=== PATIENT | female | born 1945 | race Caucasian/White ===

== ENCOUNTER → 2019-10-27 08:24 | Outpatient (CLI) | payer MEDICARE, SELFPAY ==
--- NOTE | ~2019-10-27 | MM_ITS ---
EXAMINATION: MM diagnostic [place] w [place] HISTORY: Six-month follow-up for probably benign left breast calcifications TECHNIQUE: Craniocaudal, mediolateral, and mediolateral oblique 3-D tomosynthesis images of the left breast were performed and synthetic 2-D images were generated. Magnification views are also obtained. CAD analysis was submitted and interpreted. COMPARISON: 04/24/2019, 04/04/2019, 02/25/2018, 02/15/2017 BREAST PARENCHYMAL COMPOSITION: The breasts are heterogeneously dense, which may obscure small masses . FINDINGS: Again seen are punctate segmental calcifications in the middle and posterior third of the u pper outer quadrant of the breast which are stable. These appear to be round in morphology but again are somewhat obscured by fibroglandular content. There has been no suspicious interval change. No mas s or architectural distortion is identified. IMPRESSION: 1. Probably benign left breast calcifications. 2. Recommend 6 month follow-up left diagnostic mammogram. BI-RADS category 3, probably benign findings. Reviewed, dictated and finalized at location A.
== END ==
PROVIDERS: PCP Internal Medicine; Visit Provider Obstetrics & Gynecology
DX: R92.8 Other abnormal and inconclusive findings on diagnostic imaging of breast (principal)
CPT/HCPCS: 77061; 77065; G0279

== ENCOUNTER 2020-04-21 09:31 | Outpatient (CLI) | payer MEDICARE, SELFPAY ==
[2020-04-21 10:13] LABS: Basophils Absolute Auto 0.1 K/mm3 (0.0-0.1); Basophils Percent Auto 0.9 % (0.2-1.2); Eosinophils Absolute Auto 1.3 K/mm3 (0-0.3); Eosinophils Percent Auto 15.9 % (0-4.4); Hematocrit 42.6 % (37.0-47.0); Hemoglobin 13.9 g/dL (12.0-15.0); Immature Granulocyte Absolute 0.03 K/mm3 (0.00-0.031); Immature Granulocyte Percent A 0.4 % (0-0.5); Lymphocytes Absolute Auto 2.13 K/mm3 (0.9-3.2); Lymphocytes Percent Auto 26.4 % (18.3-44.2); Mean Corpuscular HGB Conc 32.6 g/dl (32-36); Mean Corpuscular Hemoglobin 29.7 pg (26-34); Mean Platelet Volume 10.8 fl (7.4-10.4); Monocytes Absolute Auto 0.7 K/mm3 (0.1-0.6); Monocytes Percent Auto 8.7 % (2.6-8.5); Neutrophils Absolute Auto 3.9 K/mm3 (1.3-6.7); Neutrophils Percent Auto 47.7 % (45.5-73.1); Platelet Count Result 151 k/mm3 (150-375); Red Blood Count 4.68 M/mm3 (4.2-5.4); Red Cell Distribution Width 13.9 % (11.5-14.5); White Blood Count 8.1 K/mm3 (4.5-10.0)
[2020-04-21 10:28] LABS: Alanine Aminotransferase 29 U/L (4-35); Albumin Level 3.9 g/dL (3.5-5.1); Alkaline Phosphatase 47 U/L (38-126); Anion Gap 4 mmol/L (8-16); Aspartate Amino Transferase 38 U/L (14-36); Bilirubin,Total 0.6 mg/dL (0.2-1.3); Blood Urea Nitrogen 21 mg/dL (7-17); Calcium 9.4 mg/dL (8.4-10.2); Carbon Dioxide 36 mmol/L (22-30); Chloride 100 mmol/L (98-107); Cholesterol 133 mg/dL (0-200); Estimated Glomerular Filt Rate > 60; Glucose 106 mg/dL (65-105); HDL Direct 40 mg/dL; Sodium 140 mmol/L (137-145); Triglycerides 137 mg/dL (<150)
[2020-04-21 10:39] LABS: LDL Cholesterol Direct 64 mg/dL
== END 2020-04-21 09:32 | disposition home or self-care (01) ==
PROVIDERS: PCP Internal Medicine; Visit Provider Nurse Practitioner
DX: E78.00 Pure hypercholesterolemia, unspecified (principal); I10 Essential (primary) hypertension; M85.80 Other specified disorders of bone density and structure, unspecified site
CPT/HCPCS: 36415; 80053; 80061; 82306; 85025

== ENCOUNTER → 2020-05-20 09:02 | Outpatient (CLI) | payer MEDICARE, SELFPAY ==
--- NOTE | ~2020-05-20 | MM_ITS ---
EXAMINATION: MM diagnostic [place] BI [place] HISTORY: Follow-up breast calcifications TECHNIQUE: Additional 3-D tomosynthesis images of the breasts were performed and synthetic 2-D images were generated. CAD analysis was submitted and interpreted. COMPARISON: Comparison to multiple prior studies sequentially, with oldest reviewed study dated 01/20. BREAST PARENCHYMAL COMPOSITION: Breast composed of scattered areas of fibroglandular density. FINDINGS: There are no suspicious masses or architectural distortion. There are scattered punctate mo nomorphic bilateral breast calcifications which are relatively symmetric. No suspicious cluster of ca lcifications to suggest malignancy. IMPRESSION: 1. No evidence for malignancy in either breast. Benign findings. 2. Routine yearly screening mammogram and regular clinical breast examination are recommended. BI-RADS Category 2: Benign finding(s). Reviewed, dictated and finalized at location A. LTY CHAIN MAKER IMPRESSION: 1. No evidence for malignancy in either breast. Benign findings. 2. Routine yearly screening mammogram and regular clinical breast examination a re recommended. BI-RADS Category 2: Benign finding(s).
== END ==
PROVIDERS: PCP Internal Medicine; Visit Provider Obstetrics & Gynecology
DX: R92.8 Other abnormal and inconclusive findings on diagnostic imaging of breast (principal)
CPT/HCPCS: 77062; 77066; G0279

== ENCOUNTER → 2021-03-30 07:13 | Outpatient (CLI) | payer MEDICARE, SELFPAY ==
--- NOTE | ~2021-03-30 | MM_ITS ---
EXAMINATION: MM screening [place] BI [place] HISTORY: Screening TECHNIQUE: Craniocaudal and mediolateral oblique 3-D tomosynthesis images were obtained and synthetic 2-D images were generated. CAD analysis was submitted and interpreted. COMPARISON: Comparison to multiple prior studies sequentially, with oldest reviewed study dated 01/21. BREAST PARENCHYMAL COMPOSITION: There are scattered areas of fibroglandular density. FINDINGS: There is no evidence of suspicious mass, calcification, or architectural distortion to sugg est malignancy in either breast. There has been no suspicious interval change. IMPRESSION: 1. No mammographic evidence of malignancy. 2. Recommend routine screening mammography in one year. BI-RADS Category 1: Negative Reviewed, dictated and finalized at location A. LATE STORAGE CLERK
== END ==
PROVIDERS: PCP Internal Medicine; Visit Provider Obstetrics & Gynecology
DX: Z12.31 Encounter for screening mammogram for malignant neoplasm of breast (principal)
CPT/HCPCS: 77063; 77067

== ENCOUNTER 2021-05-02 07:12 | Outpatient (CLI) | payer MEDICARE, SELFPAY ==
[2021-05-02 07:41] LABS: Basophils Percent Auto 0.7 % (0.2-1.2); Eosinophils Absolute Auto 0.4 K/mm3 (0-0.3); Eosinophils Percent Auto 6.9 % (0-4.4); Hematocrit 41.7 % (37.0-47.0); Hemoglobin 13.5 g/dL (12.0-15.0); Immature Granulocyte Absolute 0.01 K/mm3 (0.00-0.031); Immature Granulocyte Percent A 0.2 % (0-0.5); Immature Platelet Fraction Pct 6.6 % (0.9-11.2); Lymphocytes Absolute Auto 1.66 K/mm3 (0.9-3.2); Lymphocytes Percent Auto 27.3 % (18.3-44.2); Mean Corpuscular HGB Conc 32.4 g/dl (32-36); Mean Corpuscular Hemoglobin 29.7 pg (26-34); Mean Corpuscular Volume 91.9 fl (80-100); Mean Platelet Volume 11.5 fl (7.4-10.4); Monocytes Absolute Auto 0.5 K/mm3 (0.1-0.6); Monocytes Percent Auto 8.7 % (2.6-8.5); Neutrophils Absolute Auto 3.4 K/mm3 (1.3-6.7); Neutrophils Percent Auto 56.2 % (45.5-73.1); Platelet Count Result 161 k/mm3 (150-375); Red Blood Count 4.54 M/mm3 (4.2-5.4); Red Cell Distribution Width 13.7 % (11.5-14.5); White Blood Count 6.1 K/mm3 (4.5-10.0)
[2021-05-02 07:53] LABS: Alanine Aminotransferase 26 U/L (4-35); Albumin Level 4.2 g/dL (3.5-5.1); Alkaline Phosphatase 50 U/L (38-126); Anion Gap 7 mmol/L (8-16); Aspartate Amino Transferase 40 U/L (14-36); Bilirubin,Total 0.6 mg/dL (0.2-1.3); Blood Urea Nitrogen 17 mg/dL (7-17); Calcium 9.3 mg/dL (8.4-10.2); Carbon Dioxide 29 mmol/L (22-30); Chloride 102 mmol/L (98-107); Cholesterol 151 mg/dL (0-200); Estimated Glomerular Filt Rate > 60; Glucose 105 mg/dL (65-110); HDL Direct 40 mg/dL; Potassium 3.9 mmol/L (3.4-5.0); Sodium 138 mmol/L (137-145); Triglycerides 233 mg/dL (<150)
[2021-05-02 08:05] LABS: LDL Cholesterol Direct 60 mg/dL
[2021-05-02 08:33] LABS: Vitamin D 25 Hydroxy 42.2 ng/mL
== END 2021-05-02 07:13 | disposition home or self-care (01) ==
PROVIDERS: PCP Internal Medicine; Visit Provider Nurse Practitioner
DX: Z13.29 Encounter for screening for other suspected endocrine disorder (principal); E78.00 Pure hypercholesterolemia, unspecified; I10 Essential (primary) hypertension; M85.80 Other specified disorders of bone density and structure, unspecified site
CPT/HCPCS: 36415; 80053; 80061; 82306; 85025; 85055

== ENCOUNTER → 2022-06-23 08:03 | Outpatient (CLI) | payer MEDICARE, SELFPAY ==
--- NOTE | ~2022-06-23 | MM_ITS ---
EXAMINATION: MM screening [place] HISTORY: Screening mammogram TECHNIQUE: Craniocaudal and mediolateral oblique 3-D tomosynthesis images were obtained and synthetic 2-D images were generated. CAD analysis was submitted and interpreted. COMPARISON: 03/30/2021, 05/20/2020, 12/28/2019 BREAST PARENCHYMAL COMPOSITION: The breasts are heterogeneously dense, which may obscure small masses . FINDINGS: No suspicious mass, calcification, or architectural distortion are identified in either [place] ast to suggest malignancy. There has been no suspicious interval change. IMPRESSION: 1. No mammographic evidence of malignancy. 2. Recommend routine screening mammography in one year. BI-RADS Category 1: Negative Reviewed, dictated and finalized at location A. AL PROJECT MANAGER
== END ==
PROVIDERS: PCP Internal Medicine; Visit Provider Obstetrics & Gynecology
DX: Z12.31 Encounter for screening mammogram for malignant neoplasm of breast (principal)
CPT/HCPCS: 77063; 77067

== ENCOUNTER 2023-01-21 14:28 | Outpatient (CLI) | payer MEDICARE, SELFPAY ==
--- NOTE | ~2023-01-21 | XR_ITS ---
EXAM: XR ankle RT 2V, XR ankle LT 2V DATE: 01/21/2023 14:58 HISTORY: swelling in both ankles, no injury, no pain . COMPARISON: None available. FINDINGS: Normal mineralization. No fracture or dislocation. No lytic or blastic lesion. Mild bilate ral tibiotalar degenerative change. Mild bilateral Achilles and plantar enthesopathy. No erosion or p eriosteal change. Soft tissues within normal limits. IMPRESSION: No acute osseous finding in the right or left ankles. Reviewed, dictated and finalized at location K. IMPRESSION: No acute osseous finding in the right or left ankles.
== END 2023-01-21 14:29 | disposition home or self-care (01) ==
PROVIDERS: PCP Internal Medicine; Visit Provider Nurse Practitioner Family
DX: R22.40 Localized swelling, mass and lump, unspecified lower limb (principal)
CPT/HCPCS: 73600

== ENCOUNTER → 2023-02-08 11:45 | Outpatient (CLI) | payer MEDICARE, SELFPAY ==
--- NOTE | ~2023-02-08 | XR_ITS ---
Left Knee Technique: AP, lateral, and sunrise views were obtained. Clinical History: Pain Findings: No fracture or dislocation is seen. Osseous alignment is anatomic. Mild tricompartmental de generative spurring present. Soft tissues are unremarkable. No joint effusion is seen. Impression: Mild tricompartmental degenerative spurring. Reviewed, dictated and finalized at location . Impression: Mild tricompartmental degenerative spurring.
== END ==
PROVIDERS: PCP Nurse Practitioner; Visit Provider Nurse Practitioner
DX: M25.562 Pain in left knee (principal)
CPT/HCPCS: 73562

== ENCOUNTER 2023-05-22 11:11 | Outpatient (CLI) | payer MEDICARE, SELFPAY ==
[2023-05-22 12:02] LABS: Basophils Percent Auto 0.7 % (0.2-1.2); Eosinophils Absolute Auto 0.3 K/mm3 (0-0.3); Eosinophils Percent Auto 5.5 % (0-4.4); Hematocrit 40.4 % (37.0-47.0); Hemoglobin 12.7 g/dL (12.0-15.0); Immature Granulocyte Absolute 0.01 K/mm3 (0.00-0.031); Immature Granulocyte Percent A 0.2 % (0-0.5); Lymphocytes Absolute Auto 1.91 K/mm3 (0.9-3.2); Lymphocytes Percent Auto 31.2 % (18.3-44.2); Mean Corpuscular HGB Conc 31.4 g/dl (32-36); Mean Corpuscular Hemoglobin 28.7 pg (26-34); Mean Corpuscular Volume 91.4 fl (80-100); Mean Platelet Volume 11.9 fl (7.4-10.4); Monocytes Absolute Auto 0.6 K/mm3 (0.1-0.6); Monocytes Percent Auto 9.1 % (2.6-8.5); Neutrophils Absolute Auto 3.3 K/mm3 (1.3-6.7); Neutrophils Percent Auto 53.3 % (45.5-73.1); Platelet Count Result 143 k/mm3 (150-375); Red Blood Count 4.42 M/mm3 (4.2-5.4); White Blood Count 6.1 K/mm3 (4.5-10.0)
[2023-05-22 12:17] LABS: Alanine Aminotransferase 24 U/L (6-35); Albumin Level 3.8 g/dL (3.5-5.1); Alkaline Phosphatase 58 U/L (38-126); Anion Gap 5 mmol/L (8-16); Aspartate Amino Transferase 31 U/L (14-36); Bilirubin,Total 0.6 mg/dL (0.2-1.3); Blood Urea Nitrogen 19 mg/dL (7-17); Calcium 9.8 mg/dL (8.4-10.2); Carbon Dioxide 31 mmol/L (22-30); Chloride 102 mmol/L (98-107); Cholesterol 123 mg/dL (0-200); Estimated Glomerular Filt Rate > 60; Glucose 95 mg/dL (65-110); HDL Direct 36 mg/dL; Potassium 3.9 mmol/L (3.4-5.0); Sodium 138 mmol/L (137-145); Triglycerides 174 mg/dL (<150)
[2023-05-22 12:51] LABS: LDL Cholesterol Direct 58 mg/dL
[2023-05-22 12:54] LABS: Vitamin D 25 Hydroxy 47.3 ng/mL
== END 2023-05-22 11:12 | disposition home or self-care (01) ==
LOC: ANHLAB 11:13
PROVIDERS: PCP Nurse Practitioner; Visit Provider Nurse Practitioner
DX: E55.9 Vitamin D deficiency, unspecified (principal); Z13.29 Encounter for screening for other suspected endocrine disorder; E78.00 Pure hypercholesterolemia, unspecified; I10 Essential (primary) hypertension
CPT/HCPCS: 36415; 80053; 80061; 82306; 85025

== ENCOUNTER 2023-06-10 13:24 | Outpatient (CLI) | payer MEDICARE, SELFPAY ==
--- NOTE | 2023-06-10 14:11 | ECHO_ITS ---
Patient Info Name: Cheryl Doyle Age: 78 years : 1945 Gender: Female Ht: 63 in Wt: 145 lbs BSA: 1.72 m2 HR: 60 bpm BP: 160 / 87 mmHg Technical Quality: Good Exam Date: 06/10/2023 2:17 PM Exam Location: Echo Lab Patient Status: Outpatient Admit Date: 06/10/2023 Staff Ordering Physician: Maria Fernanda Cornelius NP Patients Transporter: Kelly Chand RDCS Attending Provider: Maria Fernanda Cornelius NP Referring Physician: Ashli RUSSELL; Exam Type: CA echo doppler color flow Study Info Indications R01.1 - Cardiac murmur, unspecified Complete two-dimensional, color flow and Doppler transthoracic echocardiogram is performed. Summary 1. Complete two-dimensional, color flow and Doppler transthoracic echocardiogram is performed. 2. Left ventricular chamber dimension is normal. 3. Left ventricular systolic function is normal, estimated at 55-60%. 4. The left ventricular diastolic function is abnormal. 5. E/e' 13 is mildly elevated. 6. Left atrial chamber dimension is severely enlarged. 7. There is mild aortic valve sclerosis. 8. There is mild aortic valve regurgitation. 9. There is mild mitral valve regurgitation. 10. There is mild tricuspid valve regurgitation. 11. No pulmonary hypertension, estimated pulmonary arterial systolic pressure is 32 mmHg. Left Ventricle E/e' 13 is mildly elevated. Left ventricular chamber dimension is normal. Left ventricular systolic function is normal, estimated at 55-60%. The left ventricular diastolic function is abnormal. Right Ventricle Right ventricular systolic function is normal and with normal TAPSE 2.4 cm. Right ventricular chamber dimension is normal. Left Atria Left atrial chamber dimension is severely enlarged. Right Atria Right atrial chamber dimension is normal. Aortic Valve The aortic valve is trileaflet. There is mild aortic valve sclerosis. There is no aortic valve stenosis. There is mild aortic valve regurgitation. Pulmonic Valve There is no pulmonic regurgitation. Mitral Valve There is no mitral valve stenosis. There is mild mitral valve regurgitation. Tricuspid Valve There is mild tricuspid valve regurgitation. No pulmonary hypertension, estimated pulmonary arterial systolic pressure is 32 mmHg. Pericardium/Pleural There is no pericardial effusion. Inferior Vena Cava Normal inferior vena cava with >50% collapse upon inspiration consistent with normal right atrial pressure, 5 mmHg. Aorta The aortic root size at the sinus of Valsalva is normal. Left Ventricular Outflow Tract Name Value Normal LVOT 2D LVOT Diameter 1.9 cm LVOT Doppler LVOT Peak Gradient 7 mmHg LVOT Mean Gradient 3 mmHg LVOT VTI 29 cm LVOT VTI/AV VTI Ratio 1.0 LVOT Stroke Volume 83 ml LVOT CO 4.8 l/min LVOT CI 2.8 l/min/m2 Pulmonic Valve Name Value Normal RVOT Doppler
== END 2023-06-10 13:25 | disposition home or self-care (01) ==
LOC: ANHCARD 13:25
PROVIDERS: PCP Nurse Practitioner; Visit Provider Nurse Practitioner
DX: R01.1 Cardiac murmur, unspecified (principal); I34.0 Nonrheumatic mitral (valve) insufficiency; I35.1 Nonrheumatic aortic (valve) insufficiency; I36.1 Nonrheumatic tricuspid (valve) insufficiency
CPT/HCPCS: 93306

== ENCOUNTER 2023-06-26 15:53 | Outpatient (CLI) | payer MEDICARE, SELFPAY ==
--- NOTE | ~2023-06-26 | MM_ITS ---
EXAMINATION: MM screening [place] BI [place] HISTORY: Screening mammogram TECHNIQUE: Craniocaudal and mediolateral oblique 3-D tomosynthesis images were obtained and synthetic 2-D images were generated. CAD analysis was submitted and interpreted. COMPARISON: 06/23/2022, 03/26/2021 bilateral screening mammogram examinations BREAST PARENCHYMAL COMPOSITION: The breasts are heterogeneously dense, which may obscure small masses . FINDINGS: There is no evidence of suspicious mass, calcification, or architectural distortion to sugg est malignancy in either breast. There has been no suspicious interval change. IMPRESSION: 1. No mammographic evidence of malignancy. 2. Recommend routine screening mammography in one year. BI-RADS Category 1: Negative Reviewed, dictated and finalized at location A. RANCE COMMISSIONER
== END 2023-06-26 15:54 ==
LOC: MICIMG 15:54
PROVIDERS: PCP Internal Medicine; Visit Provider Obstetrics & Gynecology
DX: Z12.31 Encounter for screening mammogram for malignant neoplasm of breast (principal)
CPT/HCPCS: 77063; 77067

== ENCOUNTER 2024-05-19 13:44 | Outpatient (CLI) | payer MEDICARE, SELFPAY ==
--- OUTSIDE RECORDS SUMMARY | 2024-05-19 14:22 | XMS_ITS | Clinical Summary ---
Author Organization [facility] Address [address] [address] Phone Care Team Providers Care Internet Manager Name Role Phone Ethan Juanpablo Dorian Primary Care Provider Social History Tobacco Use Types Packs/Day Years Used Date Smoking Tobacco: Never Assessed Comments Unknown Sex and Gender Information Value Date Recorded Sex Assigned at Not on file Legal Sex Female 11:18 PM CDT Gender Identity Not on file Sexual Orientation Not on file Plan of Treatment Health Maintenance Due Date Last Done Comments DEXA Bone Density 1945 Hepatitis C Virus (HCV) Screening 1945 TdaP Immunization 1945 Pneumococcal Immunization (5 0+ years) (1 of 1 - PCV) 1993 Zoster Immunization (1 of 2) 1993 Respiratory Syncytial Virus (RSV) Immunization (Adult) (1 - 1-dose 75+ series) 2018 Influenza Immunization (#1) 2023 SARS-COV-2 Immunization ( - 2023-25 season) 2023 Hepatitis B Immunization Aged Out No longer eligible based on patient's age to complete this topic Meningococcal Immunization (ACWY) Aged Out No longer eligible based on patient's age to complete this topic Rotavirus Immunization Aged Out No lo nger eligible based on patient's age to complete this topic Insurance MEDICARE Care Teams Internet Manager Relationship Specialty Start Date End Date Juanpablo Long DO [facility] [facility] [place] [address] PCP - General Internal Medicine 05/19/19
--- OUTSIDE RECORDS SUMMARY | 2024-05-19 14:22 | XMS_ITS | Continuity of Care Document ---
Author Organization [facility] Address [address] [facility] [address] [place] [address] Phone Care Team Providers Care Press Loader Name Role Phone Lara OD, Sharad Unavailable Unavailable Procedures Procedure Date Eye Exam & Treatment Optic Nerve Head Eval IOP Red Less Than 15% W Plan Of Care Feb IOP Red Less That 15% W Plan Of Care Feb Refraction Eye Exam & Treatment No Script Refraction Advance Directives Directive Yes / No Effective Date File Name No Information Encounters Encounter Description Practice Location Reason(s) For Visit Diagnoses Date Provider Providers Copied on Encounter [facility], [address] [place] [address] [address], [place], [place], [id number], tel:[phone] [facility] No Information 9-201 0 Lara OD Sharad. [address] , [address], [place], [place], [facility], [place]. tel:[phone] [facility], [address], [place], [place], [id number], [place] tel:[phone] [facility] No Information 1-200 9 Lara OD Sharad. [address], [place], [address], [place]. tel:[phone] Family History Family Member Type Diagnosis Age At Onset No Information Payers Payer name Insurance type Covered republican ID Authoriza tion(s) [place] [id number] [facility] CI [id number] Social History Type Description Quantity Date Captured Comments Sex Female Smoking Status No Information Chief Complaint And Reason For Visit No Information Reason For Referral Reason For Referral No Information History Of Present Illness Encounter Date Complaint History Of Prese nt Illness No Information Functional Status Date Functional Assessmen t No Information Instructions Date Instruction Additional Infor mation No Information Assessments Type Assessment Date No Information Patient Care Teams Name Effective Dates (start - stop) Status Members No Information
[2024-05-19 19:43] LABS: Basophils Absolute Auto 0.1 K/mm3 (0.0-0.1); Basophils Percent Auto 0.9 % (0.2-1.2); Eosinophils Absolute Auto 0.5 K/mm3 (0-0.3); Eosinophils Percent Auto 5.9 % (0-4.4); Hematocrit 41.9 % (37.0-47.0); Hemoglobin 13.3 g/dL (12.0-15.0); Immature Granulocyte Absolute 0.02 K/mm3 (0.00-0.031); Immature Granulocyte Percent A 0.3 % (0-0.5); Immature Platelet Fraction Pct 10.7 % (0.9-11.2); Lymphocytes Absolute Auto 2.04 K/mm3 (0.9-3.2); Lymphocytes Percent Auto 26.9 % (18.3-44.2); Mean Corpuscular HGB Conc 31.7 g/dl (32-36); Mean Corpuscular Volume 91.3 fl (80-100); Mean Platelet Volume 12.9 fl (7.4-10.4); Monocytes Absolute Auto 0.6 K/mm3 (0.1-0.6); Monocytes Percent Auto 7.3 % (2.6-8.5); Neutrophils Absolute Auto 4.4 K/mm3 (1.3-6.7); Neutrophils Percent Auto 58.7 % (45.5-73.1); Platelet Count Result 149 k/mm3 (150-375); Red Blood Count 4.59 M/mm3 (4.2-5.4); White Blood Count 7.6 K/mm3 (4.5-10.0)
[2024-05-19 20:12] LABS: Alanine Aminotransferase 24 U/L (6-35); Alkaline Phosphatase 64 U/L (38-126); Anion Gap 6 mmol/L (4-12); Aspartate Amino Transferase 38 U/L (14-36); Bilirubin,Total 0.5 mg/dL (0.2-1.3); Blood Urea Nitrogen 22 mg/dL (7-17); Calcium 10.5 mg/dL (8.4-10.2); Carbon Dioxide 34 mmol/L (22-30); Chloride 101 mmol/L (98-107); Cholesterol 126 mg/dL (0-200); Estimated Glomerular Filt Rate > 60; Glucose 92 mg/dL (65-110); HDL Direct 43 mg/dL; Potassium 4.2 mmol/L (3.4-5.0); Sodium 141 mmol/L (137-145); Triglycerides 160 mg/dL (<150)
[2024-05-19 20:23] LABS: LDL Cholesterol Direct 53 mg/dL
[2024-05-19 23:56] LABS: Vitamin D 25 Hydroxy 45.9 ng/mL
== END 2024-05-19 13:45 | disposition home or self-care (01) ==
LOC: ANHGOSHLAB 13:45
PROVIDERS: PCP Internal Medicine; Visit Provider Nurse Practitioner
DX: I10 Essential (primary) hypertension (principal); E78.00 Pure hypercholesterolemia, unspecified; E55.9 Vitamin D deficiency, unspecified; Z13.29 Encounter for screening for other suspected endocrine disorder
CPT/HCPCS: 36415; 80053; 80061; 82306; 85025; 85055

== ENCOUNTER 2024-08-05 13:19 | Emergency (ER) | payer MEDICARE, SELFPAY ==
[2024-08-05 13:32] VITALS: BP 140/69; PULSE 64; RESP 19; TEMP 37.2; O2SAT 97
--- NOTE | 2024-08-05 13:55 | ED_ITS ---
HPI - Skin/Abscess/Foreign Bdy General Chief complaint: Skin/Abscess/Foreign Body Stated complaint: Rash Time Seen by Provider: 08/05/24 13:45 Source: patient and RN notes reviewed Mode of arrival: ambulatory Limitations: no limitations History of Present Illness HPI narrative: Patient presents today complaining of a rash in patches to the left chest, right neck, mid chest area times 2-4 weeks. Reports occasional itching but no pain. She has tried some Neosporin with some intermittent relief. Denies any new medications, household products, food, plant or animal contact. Related Data Home Medications ?Medication ?Instructions ?Recorded ?Confirmed ?Last Taken ?Type aspirin 81 mg tablet,delayed 81 mg PO DAILY 05/07/19 07/28/24 05/13/19 History release (Aspir-) biotin 1 mg capsule 1 mg PO DAILY 05/07/19 07/28/24 05/13/19 History calcium 300 mg-vit D3 200 1 tablet PO DAILY 05/07/19 07/28/24 05/13/19 History mnar-jmbktvye-cwxtbhzcw 13.5 mg tablet (Citracal Plus Bone Density Builder) cholecalciferol (vitamin D3) 50 2,000 unit PO DAILY 05/07/19 07/28/24 05/13/19 History mcg (2,000 unit) tablet (Vitamin D3) cider 1 tablet PO DAILY 05/07/19 07/28/24 05/13/19 History hxpnbgr-Uo-uecuxjwzwmccblst-tea 500 mg-100 mcg-300 mg-60 mg tab (Apple Cider Vinegar Plus) lysine 1,000 mg tablet 1,000 mg PO DAILY 05/07/19 07/28/24 05/13/19 History pwfntntn-uxfm-motw 8 mg-folic 400 1 tablet PO DAILY 05/07/19 07/28/24 05/13/19 08:00 History mcg-K 50 mcg-lutein 300 mcg tablet (Centrum Silver Women) raloxifene 60 mg tablet (Evista) 60 mg PO DAILY 05/07/19 07/28/24 05/13/19 History vitamin B complex 1 cap PO DAILY 05/07/19 07/28/24 05/13/19 History vitamins A,C,R-ocjc-murmds 2,148 2 tablet PO BID 05/07/19 07/28/24 05/13/19 History mcg-113 mg-45 mg-17.4 mg tablet (PreserVision AREDS) fluticasone propionate 50 2 spray intranasal DAILY PRN 05/14/19 07/28/24 Unknown History mcg/actuation nasal Congestion spray,suspension alendronate 70 mg tablet (Fosamax) 70 mg PO WEEKLY 05/05/20 07/28/24 Unknown History Allergies Allergy/AdvReac Type Severity Reaction Status Date / Time No Known Allergies Allergy Verified 08/05/24 13:20 Review of Systems Review of Systems: CONSTITUTIONAL: Denies body aches, fever, chills, or sweats. EYES: Denies visual changes, redness, or discharge. ENT: Denies rhinorrhea, congestion, sore throat, or otalgia. CARDIOVASCULAR: Denies chest pain, palpitations, or edema. RESPIRATORY: Denies cough or dyspnea. GASTROINTESTINAL: Denies abdominal pain, nausea, vomiting, or diarrhea. GENITOURINARY: Denies dysuria or hematuria. SKIN: + rash MUSCULOSKELETAL: Denies back pain, joint pain, or myalgia. NEUROLOGIC: Denies headache, numbness, tingling, or weakness. PSYCH: Denies depression or anxiety. [facility] Past Medical History Medical History Allergies Hyperglycemia Hypokalemia Hx of cataract Osteopenia Hx of renal calculi Personal history of arterial venous malformation (AVM) Hx of adenomatous colonic polyps Gastroesophageal reflux disease HTN (hypertension) Hypercholesterolemia Surgical History Surgical History History of back surgery Hx of lithotripsy Hx of foot surgery Hx of tubal ligation Family History Family History Mother Diabetes mellitus Hypertension Family history of dementia Father Family history of lung cancer Social History Social History Social History: Caffeine-coffee daily Smoking status: Never smoker Second hand tobacco smoke exposure: No Alcohol intake: never Substance use type: does not use Lack of Transportation: No Lack of Food: Never True Current Housing: I Have Housing Concerned About Future Housing: No Difficulty Paying Gas/Electric Bills: No Difficulty Paying for Meds: No Currently Unemployed: No Education: High School Diploma/GED Difficulty w/ Childcare or Family Care: No Living arrangements: alone Spiritual care concerns: No Comments At time of signature, I have reviewed and agree with nursing past medical, surgical, social and family history unless otherwise noted. Please see nursing chart for further information. There is no relevant family history pertinent to the presenting complaint Exam Narrative: GENERAL: Well-appearing, well-nourished, and in no acute distress. HEAD: Normocephalic, atraumatic. EYES: EOMI. No redness or drainage. Conjunctivae normal. ENT: Mucous membranes pink and moist. NECK: Normal AROM. CHEST: No respiratory distress. EXTREMITIES: Normal range of motion. No edema. SKIN: Warm, dry. Capillary refill normal. Normal skin turgor. Patches of erythematous macular papular rash to the left upper chest, right posterior neck, anterior bra line. No signs of infection, drainage, induration. NEURO: No focal deficits. Alert and oriented x3. Gait steady. PSYCH: Normal affect. No signs of depression or anxiety. Course Course Level of Care: Express Care Visit Vital Signs Vital signs: Vital Signs Temperature 99 F 08/05/24 13:32 Pulse Rate 64 08/05/24 13:32 Respiratory Rate 19 08/05/24 13:32 Blood Pressure 140/69 08/05/24 13:32 Pulse Oximetry 97 08/05/24 13:32 Oxygen Delivery Room Air 08/05/24 13:32 Temperature 99 F 08/05/24 13:32 Pulse Rate 64 08/05/24 13:32 Respiratory Rate 19 08/05/24 13:32 Blood Pressure 140/69 08/05/24 13:32 Pulse Oximetry 97 08/05/24 13:32 Oxygen Delivery Room Air 08/05/24 13:32 Reviewed MDM - Skin/Abscess/Foreign Bdy MDM Narrative Medical decision making narrative: Patient's rash seems to be consistent with contact dermatitis. Since areas are relatively small, will treat with some localized triamcinolone and patient will follow-up with her PCP if symptoms persist. Patient agrees with plan. Anticipatory guidance given. Differential Diagnosis Differential diagnosis: Likely abscess of skin or subcutaneous tissue, dermatophytosis, urticaria, cellulitis, eczema, insect bites, impetigo and contact dermatitis Critical Care Time Critical Care Time Critical Care Time: No Discharge Plan Discharge Clinical Impression: Contact dermatitis Qualifiers: Contact dermatitis type: unspecified Contact dermatitis trigger: unspecified t geochemist Qualified Code(s): L25.9 - Unspecified contact dermatitis, unspecified cause Patient Disposition: Home Condition: Stable Instructions: Contact Dermatitis (DC) Additional Instructions: Please use the triamcinolone as prescribed in the areas of the rash. Follow-up with your PCP next week if symptoms are not improving. Your blood pressure was elevated above 120/80 today at Urgent Care. This puts you above the threshold for follow up. Please schedule a followup visit with your personal physician as soon as possible, for further evaluation and meka atment. Even blood pressure exceeding 120/80 may indicate pre-hypertension. Patient Language: Kyrgyz Prescriptions: New triamcinolone acetonide 0.1 % cream 1 applic topical BID Qty: 30 0RF No Action alendronate [Fosamax] 70 mg tablet 70 mg PO WEEKLY lysine 1,000 mg Tablet 1,000 mg PO DAILY aspirin [Aspir-81] 81 mg Tablet,Delayed Release (Dr/Ec) 81 mg PO DAILY raloxifene [Evista] 60 mg Tablet 60 mg PO DAILY vitamin B complex Capsule 1 cap PO DAILY Apple Cider Vinegar Plus [phone] do-soh-gf-mg Tablet 1 tablet PO DAILY cholecalciferol (vitamin D3) [Vitamin D3] 2,000 unit Tablet 2,000 unit PO DAILY Citracal Plus Bone Density 300-200-13.5 mg-unit-mg Tablet 1 tablet PO DAILY PreserVision AREDS 7,[phone] pnfd-vl-tsmw Tablet 2 tablet PO BID biotin 1 mg Capsule 1 mg PO DAILY Centrum Silver Women 8 mg iron-400 mcg-300 mcg Tablet 1 tablet PO DAILY fluticasone propionate 50 mcg/actuation spray,suspension 2 spray INTRANASAL DAILY PRN (Reason: Congestion) loratadine 10 mg tablet 10 mg PO DAILY Qty: 90 1RF Rx Instructions: name brand only simvastatin 20 mg tablet See Rx Instructions .ROUTE .COMPLEX Qty: 90 1RF Dose Instruction: Take 1 tablet by mouth once daily Rx Instructions: Take 1 tablet by mouth once daily potassium chloride 10 mEq tablet extended release See Rx Instructions .ROUTE .COMPLEX Qty: 90 1RF Dose Instruction: Take 1 tablet by mouth once daily Rx Instructions: Take 1 tablet by mouth once daily amlodipine 5 mg tablet 5 mg PO DAILY Qty: 90 1RF nebivolol 5 mg tablet See Rx Instructions .ROUTE .COMPLEX Qty: 90 1RF Dose Instruction: Take 1 tablet by mouth once daily Rx Instructions: Take 1 tablet by mouth once daily benazepril-hydrochlorothiazide 20-12.5 mg tablet 1 tablet PO DAILY Qty: 90 1RF Follow-up/Referrals: Juanpablo Long DO [Primary Care Provider] - Time of Disposition: 13:55
== END 2024-08-05 14:05 | disposition home or self-care (01) ==
PROVIDERS: Emergency Provider Nurse Practitioner; PCP Internal Medicine
DX: L25.9 Unspecified contact dermatitis, unspecified cause (principal); I10 Essential (primary) hypertension; E78.00 Pure hypercholesterolemia, unspecified; K21.9 Gastro-esophageal reflux disease without esophagitis; M85.80 Other specified disorders of bone density and structure, unspecified site; Z87.74 Personal history of (corrected) congenital malformations of heart and circulatory system; Z79.82 Long term (current) use of aspirin
CPT/HCPCS: 99213; G0463

== ENCOUNTER 2024-08-06 00:47 | Day surgery (SDC) | payer MEDICARE, SELFPAY ==
[2024-07-28 15:12] VITALS: BMI 23.4
--- OUTSIDE RECORDS SUMMARY | 2024-08-06 00:49 | XMS_ITS | Clinical Summary ---
Author Organization [facility] Address [address] [address] Phone Care Team Providers Care Hard Rock Miner Name Role Phone Ethan Juanpablo Dorian Primary [...] complete this topic Insurance MEDICARE Care Teams Hard Rock Miner Relationship Specialty Start Date End Date Juanpablo Long DO [facility] [address] [place] [address] PCP - General Internal Medicine 05/19/19
[2024-08-06 08:49] VITALS: BP 170/61; PULSE 57; RESP 18; TEMP 36.8; O2SAT 97
[2024-08-06] MEDS: LACTATED RINGERS 1,000 ML 150 ML IV CONT (09:00)
--- NOTE | 2024-08-06 09:03 | WPDANESEPPF ---
Anes - Initial Pre Proc Eval Procedure: Operation Date: 08/06/24 10:00 Proposed Procedures p Colonoscopy - Shadi Mcmahon MD Date/Time: 08/06/24 09:03 Surgeon: Shadi Mcmahon MD Pre Op Diagnosis: Personal history of colon polyps Patient Data Age: 79 Gender: F Height: 1.6 m Weight: 64 kg Last Vital Signs Temp 36.8 C 08/06/24 08:49 Pulse 57 L 08/06/24 08:49 Resp 18 08/06/24 08:49 BP 170/61 H 08/06/24 08:49 Pulse Ox 97 08/06/24 08:49 O2 Del Method Room Air 08/06/24 08:49 Allergies Allergy/AdvReac Type Severity Reaction Status Date / Time No Known Allergies Allergy Verified 08/05/24 13:20 Home Medications ?Medication ?Instructions ?Recorded ?Confirmed ?Type aspirin 81 mg tablet,delayed 81 mg PO DAILY 05/07/19 08/06/24 History release (Aspir-) biotin 1 mg capsule 1 mg PO DAILY 05/07/19 08/06/24 History calcium 300 mg-vit D3 200 1 tablet PO DAILY 05/07/19 08/06/24 History eurg-yddtpurc-kvzoxrcra 13.5 mg tablet (Citracal Plus Bone Density Builder) cholecalciferol (vitamin D3) 50 2,000 unit PO DAILY 05/07/19 07/28/24 History mcg (2,000 unit) tablet (Vitamin D3) cider 1 tablet PO DAILY 05/07/19 07/28/24 History dsledlh-Ow-bdecbxrpxkzhsayl-tea 500 mg-100 mcg-300 mg-60 mg tab (Apple Cider Vinegar Plus) lysine 1,000 mg tablet 1,000 mg PO DAILY 05/07/19 08/06/24 History flnogqsb-emac-dhze 8 mg-folic 400 1 tablet PO DAILY 05/07/19 07/28/24 History mcg-K 50 mcg-lutein 300 mcg tablet (Centrum Silver Women) raloxifene 60 mg tablet (Evista) 60 mg PO DAILY 05/07/19 07/28/24 History vitamin B complex 1 cap PO DAILY 05/07/19 07/28/24 History vitamins A,C,E-jjgz-xglrog 2,148 2 tablet PO BID 05/07/19 07/28/24 History mcg-113 mg-45 mg-17.4 mg tablet (PreserVision AREDS) fluticasone propionate 50 2 spray intranasal DAILY PRN 05/14/19 07/28/24 History mcg/actuation nasal Congestion spray,suspension alendronate 70 mg tablet (Fosamax) 70 mg PO WEEKLY 05/05/20 07/28/24 History loratadine 10 mg tablet 10 mg PO DAILY #90 tabs 11/25/20 08/06/24 Rx potassium chloride 10 mEq See Rx Instructions .Route 03/06/24 07/28/24 Rx tablet,extended release .COMPLEX #90 tabs amlodipine 5 mg tablet 5 mg PO DAILY #90 tabs 04/23/24 08/06/24 Rx nebivolol 5 mg tablet See Rx Instructions .Route 06/17/24 07/28/24 Rx .COMPLEX #90 tabs benazepril 20 1 tablet PO DAILY #90 tabs 07/29/24 08/06/24 Rx mg-hydrochlorothiazide 12.5 mg tablet triamcinolone acetonide 0.1 % 1 applic topical BID #30 grams 08/05/24 Rx topical cream simvastatin 20 mg tablet See Rx Instructions .Route 08/06/24 Rx .COMPLEX #90 tabs Patient hx anesthesia problems: none Family hx anesthesia problems: none Results Review: All pre-operative results and documents have been reviewed as part of the pre-operative evaluation. [facility] Past Medical History Medical History Allergies Hyperglycemia Hypokalemia Hx of cataract Osteopenia Hx of renal calculi Personal history of arterial venous malformation (AVM) Hx of adenomatous colonic polyps Gastroesophageal reflux disease HTN (hypertension) Hypercholesterolemia Surgical History Surgical History History of back surgery Hx of lithotripsy Hx of foot surgery Hx of tubal ligation Family History Family History Mother Diabetes mellitus Hypertension Family history of dementia Father Family history of lung cancer Social History Social History Social History: Caffeine-coffee daily Smoking status: Never smoker Second hand tobacco smoke exposure: No Alcohol intake: never Substance use type: does not use Lack of Transportation: No Lack of Food: Never True Current Housing: I Have Housing Concerned About Future Housing: No Difficulty Paying Gas/Electric Bills: No Difficulty Paying for Meds: No Currently Unemployed: No Education: High School Diploma/GED Difficulty w/ Childcare or Family Care: No Living arrangements: alone Spiritual care concerns: No Anes - Eval Final PreProcedure Day of Procedure 08/06/24 09:03 Patient weight: normal Heart: regular rate and rhythm Lungs: clear to auscultation Airway: Mallampati scale class II Neurological: alert and oriented Last oral intake: >/= 8 hours ASA classification: III Emergent: no Anesthetic plan: proceed Anesthesia type and monitoring: general GIVS and standard monitoring Results Review: All pre-operative results and documents have been reviewed as part of the pre-operative evaluation. Informed Consent: The patient's anesthetic plan and its attendant risks and benefits were discussed with the patient/family/POA. Questions were solicited and answers provided to the satisfaction of the patient/family/POA.
--- NOTE | 2024-08-06 09:20 | PM.IMHP ---
H&P: HPI History of Present Illness Date/Time: 08/06/24 09:20 Chief Complaint: History of colon polyps Narrative: The patient has a history of colonic polyps, the last colonoscopy was 5 years ago. Review of Systems Review of Systems: All systems reviewed & are unremarkable except as noted in HPI and below PMFSH Past Medical History Medical History Allergies Hyperglycemia Hypokalemia Hx of cataract Osteopenia Hx of renal calculi Personal history of arterial venous malformation (AVM) Hx of adenomatous colonic polyps Gastroesophageal reflux disease HTN (hypertension) Hypercholesterolemia Surgical History Surgical History History of back surgery Hx of lithotripsy Hx of foot surgery Hx of tubal ligation Family History Family History Mother Diabetes mellitus Hypertension Family history of dementia Father Family history of lung cancer Social History Social History Social History: Caffeine-coffee daily Smoking status: Never smoker Second hand tobacco smoke exposure: No Alcohol intake: never Substance use type: does not use Lack of Transportation: No Lack of Food: Never True Current Housing: I Have Housing Concerned About Future Housing: No Difficulty Paying Gas/Electric Bills: No Difficulty Paying for Meds: No Currently Unemployed: No Education: High School Diploma/GED Difficulty w/ Childcare or Family Care: No Living arrangements: alone Spiritual care concerns: No Meds Home Medications and Allergies Home Medications ?Medication ?Instructions ?Recorded ?Confirmed ?Type aspirin 81 mg tablet,delayed 81 mg PO DAILY 05/07/19 08/06/24 History release (Aspir-) biotin 1 mg capsule 1 mg PO DAILY 05/07/19 08/06/24 History calcium 300 mg-vit D3 200 1 tablet PO DAILY 05/07/19 08/06/24 History ozsj-sokhewve-xxtsfbinx 13.5 mg tablet (Citracal Plus Bone Density Builder) cholecalciferol (vitamin D3) 50 2,000 unit PO DAILY 05/07/19 07/28/24 History mcg (2,000 unit) tablet (Vitamin D3) cider 1 tablet PO DAILY 05/07/19 07/28/24 History rqdlnbg-De-ggzglunompcivshf-tea 500 mg-100 mcg-300 mg-60 mg tab (Apple Cider Vinegar Plus) lysine 1,000 mg tablet 1,000 mg PO DAILY 05/07/19 08/06/24 History fubgfmpa-bsyi-vkab 8 mg-folic 400 1 tablet PO DAILY 05/07/19 07/28/24 History mcg-K 50 mcg-lutein 300 mcg tablet (Centrum Silver Women) raloxifene 60 mg tablet (Evista) 60 mg PO DAILY 05/07/19 07/28/24 History vitamin B complex 1 cap PO DAILY 05/07/19 07/28/24 History vitamins A,C,V-uyuf-xneekl 2,148 2 tablet PO BID 05/07/19 07/28/24 History mcg-113 mg-45 mg-17.4 mg tablet (PreserVision AREDS) fluticasone propionate 50 2 spray intranasal DAILY PRN 05/14/19 07/28/24 History mcg/actuation nasal Congestion spray,suspension alendronate 70 mg tablet (Fosamax) 70 mg PO WEEKLY 05/05/20 07/28/24 History loratadine 10 mg tablet 10 mg PO DAILY #90 tabs 11/25/20 08/06/24 Rx potassium chloride 10 mEq See Rx Instructions .Route 03/06/24 07/28/24 Rx tablet,extended release .COMPLEX #90 tabs amlodipine 5 mg tablet 5 mg PO DAILY #90 tabs 04/23/24 08/06/24 Rx nebivolol 5 mg tablet See Rx Instructions .Route 06/17/24 07/28/24 Rx .COMPLEX #90 tabs benazepril 20 1 tablet PO DAILY #90 tabs 07/29/24 08/06/24 Rx mg-hydrochlorothiazide 12.5 mg tablet triamcinolone acetonide 0.1 % 1 applic topical BID #30 grams 08/05/24 Rx topical cream simvastatin 20 mg tablet See Rx Instructions .Route 08/06/24 Rx .COMPLEX #90 tabs Allergies Allergy/AdvReac Type Severity Reaction Status Date / Time No Known Allergies Allergy Verified 08/05/24 13:20 Vital Signs Vital Signs - 24 hr 08/06/24 08:49 Temperature 98.2 F Pulse Rate 57 L Respiratory Rate 18 Blood Pressure 170/61 H Pulse Oximetry 97 Oxygen Delivery Room Air Exam Const: General: cooperative and healthy appearing Resp: Effort & Inspection: normal respiratory effort and able to speak in complete sentences Auscultation: clear to auscultation bilaterally Cardio: Rate: regular rate Rhythm: regular rhythm GI: Inspection: normal to inspection GI Palp: No No hepatosplenomegaly present Auscultation: normal bowel sounds Rectal Exam: deferred Skin: General skin exam: normal color Psych: Appearance: grossly normal Mental Status: mental status grossly normal Assessment and Plan Assessment and plan (1) Hx of adenomatous colonic polyps: Code(s): Z86.010 - Personal history of colon polyps Status: Acute Assessment and Plan: The patient is deemed a good candidate for the procedure. Consent signed. Will proceed.
[2024-08-06 09:37] VITALS: BP 175/92; PULSE 64; RESP 18; O2SAT 98
[2024-08-06 09:47] VITALS: BP 155/79; PULSE 66; RESP 20; O2SAT 98
[2024-08-06 09:57] VITALS: BP 144/72; PULSE 61; RESP 22; O2SAT 100
== END 2024-08-06 10:11 | disposition home or self-care (01) ==
PROVIDERS: PCP Internal Medicine; Referring Provider Nurse Practitioner; Visit Provider Internal Medicine Gastroenterology
PROC: 0DJD8ZZ Inspection of Lower Intestinal Tract, Via Natural or Artificial Opening Endoscopic (ICD-10-PCS; CPT 45378; principal; 2024-08-06 10:00)
DX: Z12.11 Encounter for screening for malignant neoplasm of colon (principal); K57.30 Diverticulosis of large intestine without perforation or abscess without bleeding; K21.9 Gastro-esophageal reflux disease without esophagitis; I10 Essential (primary) hypertension; E78.00 Pure hypercholesterolemia, unspecified; R73.9 Hyperglycemia, unspecified; E87.6 Hypokalemia; M85.88 Other specified disorders of bone density and structure, other site; Z79.82 Long term (current) use of aspirin; Z79.83 Long term (current) use of bisphosphonates; Z79.810 Long term (current) use of selective estrogen receptor modulators (SERMs); Z98.890 Other specified postprocedural states; Z98.1 Arthrodesis status; Z98.51 Tubal ligation status; Z86.0100 Personal history of colon polyps, unspecified; Z87.442 Personal history of urinary calculi; Z87.798 Personal history of other (corrected) congenital malformations; Z80.1 Family history of malignant neoplasm of trachea, bronchus and lung
CPT/HCPCS: G0105; J2704; J7120

== ENCOUNTER 2024-08-20 13:10 | Outpatient (CLI) | payer MEDICARE, SELFPAY ==
--- NOTE | ~2024-08-20 | MM_ITS ---
EXAMINATION: MM screening [facility] w [place] HISTORY: Screening TECHNIQUE: Craniocaudal and mediolateral oblique 3-D tomosynthesis images were obtained and synthetic 2-D images were generated. CAD analysis was submitted and interpreted. COMPARISON: Comparison to multiple prior studies sequentially, with oldest reviewed study dated 06/2019. BREAST PARENCHYMAL COMPOSITION: Not dense: There are scattered areas of fibroglandular density. FINDINGS: There is no evidence of suspicious mass, calcification, or architectural distortion to sugg est malignancy in either breast. There has been no suspicious interval change. IMPRESSION: 1. No mammographic evidence of malignancy. 2. Recommend routine screening mammography in one year. BI-RADS Category 1: Negative Reviewed, dictated and finalized at location A.
== END 2024-08-20 13:11 | disposition home or self-care (01) ==
PROVIDERS: PCP Obstetrics & Gynecology; Visit Provider Internal Medicine
DX: Z12.31 Encounter for screening mammogram for malignant neoplasm of breast (principal)
CPT/HCPCS: 77063; 77067

== ENCOUNTER 2024-08-25 14:17 | Outpatient (CLI) | payer MEDICARE, SELFPAY ==
--- NOTE | ~2024-08-25 | XR_ITS ---
XR chest 2V 08/25/2024 14:36 Indication: Cough Procedure: 2 view chest Comparison: No prior studies for comparison. Findings: There is bibasilar airspace disease. Heart size normal. No pleural effusion, edema or pneum othorax. No acute osseous abnormality. Impression: 1: Bibasilar airspace disease may represent atelectasis or pneumonia. Reviewed, dictated and finalized at location A. Impression: 1: Bibasilar airspace disease may represent atelectasis or pneumonia.
== END 2024-08-25 14:18 | disposition home or self-care (01) ==
LOC: GOSHIMG 14:17
PROVIDERS: PCP Nurse Practitioner; Visit Provider Nurse Practitioner
DX: R05.9 Cough, unspecified (principal); R91.8 Other nonspecific abnormal finding of lung field
CPT/HCPCS: 71046